=== PATIENT | female | born 1945 | race Caucasian/White ===

== ENCOUNTER 2018-05-02 01:14 | Inpatient (IN) | payer MEDICAID ==
[~2018-05-02] VITALS: Ht 162.6 cm; Wt 66.3 kg
[2018-05-02] MEDS ORDERED: MORPHINE SULFATE 4 MG/ML CPJ (NOT FOR IM USE) IV STA (02:54)
[2018-05-02] MEDS ORDERED: ONDANSETRON HCL 4MG/2ML VIAL IV STA (02:54)
[2018-05-02 03:06] LABS: CHLORIDE 81 mEq/L (98-107)
[2018-05-02 03:07] LABS: BASOPHILS % 0.4 % (0.0-2.0); EOSINOPHILS % 0.7 % (0.0-5.0); HEMATOCRIT. 44.1 % (36.0-48.0); HEMOGLOBIN. 15.4 g/dL (12.0-16.0); LYMPHOCYTES % 27.8 % (20.0-50.0); MEAN CORPUSCULAR HEMOGLOBIN 31.1 pg (28.0-32.0); MEAN CORPUSCULAR VOLUME 88.9 fL (81.0-99.0); MEAN PLATELET VOLUME 7.7 fl (7.4-10.4); NEUTROPHILS % 64.1 % (40.0-76.0); PLATELET 355 x1000/uL (130-400); RED BLOOD CELL COUNT 4.97 mill/uL (4.2-5.4); RED CELL DISTRIBUTION WIDTH 13.9 % (11.6-14.6)
[2018-05-02] MEDS ORDERED: METOCLOPRAMIDE HCL 10MG/2ML VIAL IV ONE (03:45)
[2018-05-02] MEDS ORDERED: SODIUM CHLORIDE 0.9% 500 ML IV NR (04:00)
[2018-05-02 08:00] VITALS: BP 137/43
[2018-05-02 09:00] VITALS: BP 137/43
[2018-05-02] MEDS ORDERED: ASPI-1158 MT (09:25)
[2018-05-02] MEDS ORDERED: METO-539 MT (09:25)
[2018-05-02] MEDS ORDERED: HYDR12.529 PO (09:25)
[2018-05-02] MEDS ORDERED: GUAIFENESIN 200MG/10ML SUGAR FREE UDC PO PRN (10:15)
[2018-05-02] MEDS ORDERED: ONDANSETRON HCL 4MG/2ML VIAL IV PRN (10:15)
[2018-05-02] MEDS ORDERED: HYDROCODONE/ACETAMINOPHEN 5/325MG TABLET PO PRN (10:15)
[2018-05-02] MEDS ORDERED: DIPHENHYDRAMINE 50MG/ML VIAL IV PRN (10:15)
[2018-05-02] MEDS ORDERED: IPRATROPIUM/ALBUTEROL 0.5-3(2.5)MG/3ML NEB INH PRN (10:15)
[2018-05-02] MEDS ORDERED: DOCUSATE SODIUM 100MG CAPSULE PO PRN (10:15)
[2018-05-02] MEDS ORDERED: HYDR-4135 MT (10:54)
[2018-05-02] MEDS ORDERED: SIMV20TA6 PO (10:57)
[2018-05-02 12:00] VITALS: BP 139/55
[2018-05-02 12:46] LABS: CHLORIDE 84 mEq/L (98-107)
[2018-05-02] MEDS ORDERED: DEXTROSE 50% WATER 50ML SYRINGE IV PRN (13:15)
[2018-05-02] MEDS: SODIUM CHLORIDE 0.9% 1,000 ML IV SCH (13:49)
[2018-05-02] MEDS: MAGNESIUM/ALUMINUM HYDROXIDE/SIMETHICONE 30ML UDC PO PRN (13:50)
[2018-05-02 16:00] VITALS: BP_SYST 110; BP_SYST 127; BP_DIAS 57; BP_DIAS 59
[2018-05-02 16:17] LABS: CLARITY URINE CLEAR (CLEAR); COLOR URINE YELLOW (YELLOW); KETONES URINE 1+ (NEGATIVE); LEUKOCYTE ESTERASE URINE 2+ (NEGATIVE); NITRITE URINE NEGATIVE (NEGATIVE); OCCULT BLOOD URINE NEGATIVE (NEGATIVE); PROTEIN URINE TRACE (NEGATIVE); SPECIFIC GRAVITY URINE 1.009 (1.005-1.030); UROBILINOGEN URINE 0.2 E.U./dL (0.2-1.0)
[2018-05-02] MEDS: BLOOD SUGAR DIAGNOSTIC STRIP TEST SCH ×2 (16:45→20:30)
[2018-05-02 16:51] LABS: *AMPHETAMINES SCREEN URINE NEGATIVE (NEGATIVE)
[2018-05-02 16:52] LABS: *BARBITURATES SCREEN URINE NEGATIVE (NEGATIVE); *BENZODIAZEPINES SCREEN URINE NEGATIVE (NEGATIVE); *COCAINE SCREEN URINE NEGATIVE (NEGATIVE); CANNABINOID URINE SCREEN NEGATIVE (NEGATIVE); METHADONE URINE SCREEN NEGATIVE (NEGATIVE); OPIATES URINE SCREEN PRESUMTIVE POSITIVE (NEGATIVE); PHENCYCLIDINE URINE SCREEN NEGATIVE (NEGATIVE)
[2018-05-02] MEDS: INSULIN LISPRO 100 UNITS/ML SUBCUT SCH ×2 (17:15→20:30)
[2018-05-02 20:00] VITALS: BP 157/57
[2018-05-02] MEDS: METOPROLOL TARTRATE 25MG TABLET PO SCH (20:30)
[2018-05-03] VITALS (7 sets, daily range): BP systolic 144–176; BP diastolic 60–80
[2018-05-03] MEDS: SODIUM CHLORIDE 0.9% 1,000 ML IV SCH ×2 (02:12→21:25)
[2018-05-03] MEDS: INSULIN LISPRO 100 UNITS/ML SUBCUT SCH ×4 (06:46→21:00)
[2018-05-03] MEDS: BLOOD SUGAR DIAGNOSTIC STRIP TEST SCH ×4 (06:46→21:32)
[2018-05-03] MEDS: OMEPRAZOLE 20MG CAPSULE EXTENDED RELEASE PO SCH (06:46)
[2018-05-03 07:48] LABS: BASOPHILS % 0.3 % (0.0-2.0); EOSINOPHILS % 0.3 % (0.0-5.0); HEMATOCRIT. 37.8 % (36.0-48.0); HEMOGLOBIN. 13.3 g/dL (12.0-16.0); LYMPHOCYTES % 23.5 % (20.0-50.0); MEAN CORPUSCULAR HEMOGLOBIN 31.1 pg (28.0-32.0); MEAN CORPUSCULAR VOLUME 88.5 fL (81.0-99.0); MEAN PLATELET VOLUME 7.1 fl (7.4-10.4); MONOCYTES % 8.1 % (2.0-8.0); NEUTROPHILS % 67.8 % (40.0-76.0); PLATELET 295 x1000/uL (130-400); RED BLOOD CELL COUNT 4.27 mill/uL (4.2-5.4); RED CELL DISTRIBUTION WIDTH 14.1 % (11.6-14.6)
[2018-05-03 07:55] LABS: CHLORIDE 93 mEq/L (98-107)
[2018-05-03 08:06] LABS: LDL CHOLESTEROL 54 mg/dL (5-100)
[2018-05-03 08:07] LABS: HDL CHOLESTEROL 92 mg/dL (40-59); T4 FREE 1.47 ng/dL (0.76-1.46)
[2018-05-03] MEDS: METOPROLOL TARTRATE 25MG TABLET PO SCH ×2 (08:48→21:24)
[2018-05-03] MEDS: ASPIRIN 81MG TABLET PO SCH (08:48)
[2018-05-03] MEDS ORDERED: LORAZEPAM 2MG/ML CPJ IV PRN (11:15)
[2018-05-03] MEDS ORDERED: POTASSIUM CHLORIDE 20MEQ TABLET SR PO NR ×2 (11:15→14:00)
[2018-05-03] MEDS: CLONIDINE 0.1MG TABLET PO PRN (12:19)
[2018-05-03] MEDS: AMLODIPINE 2.5MG TABLET PO SCH (21:25)
[2018-05-04] VITALS: BP 175/84
[2018-05-04 00:15] VITALS: BP 170/92
[2018-05-04] MEDS: CLONIDINE 0.1MG TABLET PO PRN ×3 (00:47→18:52)
[2018-05-04 04:00] VITALS: BP_SYST 124; BP_SYST 141; BP_SYST 144; BP_DIAS 61; BP_DIAS 71; BP_DIAS 73
[2018-05-04] MEDS: OMEPRAZOLE 20MG CAPSULE EXTENDED RELEASE PO SCH (06:09)
[2018-05-04] MEDS: BLOOD SUGAR DIAGNOSTIC STRIP TEST SCH ×4 (06:11→20:13)
[2018-05-04] MEDS: INSULIN LISPRO 100 UNITS/ML SUBCUT SCH ×4 (06:22→20:14)
[2018-05-04 07:20] LABS: CHLORIDE 93 mEq/L (98-107)
[2018-05-04 07:28] LABS: PHOSPHORUS 2.3 mg/dL (2.5-4.9)
[2018-05-04 07:34] LABS: BASOPHILS % 0.5 % (0.0-2.0); EOSINOPHILS % 1.2 % (0.0-5.0); HEMATOCRIT. 37.1 % (36.0-48.0); HEMOGLOBIN. 12.9 g/dL (12.0-16.0); LYMPHOCYTES % 23.4 % (20.0-50.0); MEAN CORPUSCULAR HEMOGLOBIN 31.3 pg (28.0-32.0); MEAN CORPUSCULAR VOLUME 89.7 fL (81.0-99.0); MEAN PLATELET VOLUME 7.4 fl (7.4-10.4); MONOCYTES % 9.3 % (2.0-8.0); NEUTROPHILS % 65.6 % (40.0-76.0); PLATELET 284 x1000/uL (130-400); RED BLOOD CELL COUNT 4.13 mill/uL (4.2-5.4); RED CELL DISTRIBUTION WIDTH 13.7 % (11.6-14.6)
[2018-05-04 08:00] VITALS: BP 162/78
[2018-05-04] MEDS: ASPIRIN 81MG TABLET PO SCH (09:52)
[2018-05-04] MEDS: AMLODIPINE 2.5MG TABLET PO SCH (09:52)
[2018-05-04] MEDS: METOPROLOL TARTRATE 25MG TABLET PO SCH (09:53)
[2018-05-04] MEDS: POTASSIUM CHLORIDE 20MEQ TABLET SR PO SCH (09:53)
[2018-05-04 13:29] LABS: SODIUM URINE RANDOM 129 mEq/L
[2018-05-04 16:00] VITALS: BP 176/80
[2018-05-04] MEDS: NIFEDIPINE XL 30MG TAB PO SCH ×2 (16:15→20:10)
[2018-05-04] MEDS: ACETAMINOPHEN 325MG TABLET PO PRN (16:20)
[2018-05-04 20:00] VITALS: BP_SYST 155; BP_SYST 174; BP_DIAS 78; BP_DIAS 87
[2018-05-04] MEDS: METOPROLOL TARTRATE 50MG TABLET PO SCH (20:11)
[2018-05-05] VITALS: BP 131/66
[2018-05-05] MEDS: SODIUM CHLORIDE 0.9% 1,000 ML IV SCH (00:44)
[2018-05-05 04:00] VITALS: BP 121/62
[2018-05-05] MEDS: BLOOD SUGAR DIAGNOSTIC STRIP TEST SCH ×4 (05:43→21:05)
[2018-05-05] MEDS: INSULIN LISPRO 100 UNITS/ML SUBCUT SCH ×4 (06:22→21:00)
[2018-05-05 07:25] LABS: BASOPHILS % 0.5 % (0.0-2.0); EOSINOPHILS % 1.4 % (0.0-5.0); HEMATOCRIT. 39.5 % (36.0-48.0); HEMOGLOBIN. 13.5 g/dL (12.0-16.0); LYMPHOCYTES % 24.5 % (20.0-50.0); MEAN CORPUSCULAR HEMOGLOBIN 30.3 pg (28.0-32.0); MEAN CORPUSCULAR VOLUME 88.7 fL (81.0-99.0); MEAN PLATELET VOLUME 7.3 fl (7.4-10.4); MONOCYTES % 8.2 % (2.0-8.0); NEUTROPHILS % 65.4 % (40.0-76.0); PLATELET 285 x1000/uL (130-400); RED BLOOD CELL COUNT 4.46 mill/uL (4.2-5.4); RED CELL DISTRIBUTION WIDTH 13.6 % (11.6-14.6)
[2018-05-05 08:00] VITALS: BP_SYST 117; BP_SYST 123; BP_SYST 148; BP_DIAS 65; BP_DIAS 73; BP_DIAS 79
[2018-05-05] MEDS: ACETAMINOPHEN 325MG TABLET PO PRN ×2 (08:16→22:37)
[2018-05-05] MEDS: POTASSIUM CHLORIDE 20MEQ TABLET SR PO SCH (08:17)
[2018-05-05] MEDS: ASPIRIN 81MG TABLET PO SCH (08:17)
[2018-05-05] MEDS: NIFEDIPINE XL 30MG TAB PO SCH ×2 (08:18→20:59)
[2018-05-05] MEDS: FAMOTIDINE 20MG TABLET PO SCH (08:18)
[2018-05-05] MEDS: METOPROLOL TARTRATE 50MG TABLET PO SCH ×2 (08:18→20:59)
[2018-05-05 09:05] LABS: CHLORIDE 87 mEq/L (98-107)
[2018-05-05 09:18] LABS: PHOSPHORUS 2.7 mg/dL (2.5-4.9)
[2018-05-05] MEDS: OMEPRAZOLE 20MG CAPSULE EXTENDED RELEASE PO SCH (14:40)
[2018-05-05] MEDS: DOCUSATE SODIUM 100MG CAPSULE PO SCH (14:40)
[2018-05-05 16:00] VITALS: BP 142/65
[2018-05-05] MEDS: TRAMADOL 50MG TABLET PO PRN (17:55)
[2018-05-05 18:02] LABS: CHLORIDE 91 mEq/L (98-107)
[2018-05-05 20:00] VITALS: BP 143/65
[2018-05-06] VITALS: BP 118/50
[2018-05-06 04:00] VITALS: BP 128/61
[2018-05-06] MEDS: OMEPRAZOLE 20MG CAPSULE EXTENDED RELEASE PO SCH (06:32)
[2018-05-06] MEDS: INSULIN LISPRO 100 UNITS/ML SUBCUT SCH ×4 (06:35→21:00)
[2018-05-06] MEDS: BLOOD SUGAR DIAGNOSTIC STRIP TEST SCH ×4 (06:35→21:00)
[2018-05-06 06:41] LABS: BASOPHILS % 0.5 % (0.0-2.0); EOSINOPHILS % 1.3 % (0.0-5.0); HEMATOCRIT. 40.8 % (36.0-48.0); HEMOGLOBIN. 14.2 g/dL (12.0-16.0); LYMPHOCYTES % 32.6 % (20.0-50.0); MEAN CORPUSCULAR HEMOGLOBIN 31.2 pg (28.0-32.0); MEAN CORPUSCULAR VOLUME 89.3 fL (81.0-99.0); MEAN PLATELET VOLUME 7.3 fl (7.4-10.4); MONOCYTES % 9.9 % (2.0-8.0); NEUTROPHILS % 55.7 % (40.0-76.0); PLATELET 357 x1000/uL (130-400); RED BLOOD CELL COUNT 4.56 mill/uL (4.2-5.4); RED CELL DISTRIBUTION WIDTH 13.9 % (11.6-14.6)
[2018-05-06 08:00] VITALS: BP 129/66
[2018-05-06 08:17] LABS: CHLORIDE 90 mEq/L (98-107)
[2018-05-06 08:22] LABS: PHOSPHORUS 3.1 mg/dL (2.5-4.9)
[2018-05-06] MEDS ORDERED: BISACODYL 10MG SUPP PR PRN (08:45)
[2018-05-06] MEDS ORDERED: SENNOSIDES/DOCUSATE SOD 8.6/50MG TABLET PO PRN (08:45)
[2018-05-06] MEDS: FAMOTIDINE 20MG TABLET PO SCH (10:24)
[2018-05-06] MEDS: DOCUSATE SODIUM 100MG CAPSULE PO SCH (10:24)
[2018-05-06] MEDS: SODIUM CHLORIDE 1000MG TABLET PO SCH ×2 (10:24→17:30)
[2018-05-06] MEDS: ASPIRIN 81MG TABLET PO SCH (10:24)
[2018-05-06] MEDS: POTASSIUM CHLORIDE 20MEQ TABLET SR PO SCH (10:24)
[2018-05-06] MEDS: NIFEDIPINE XL 30MG TAB PO SCH ×2 (10:25→21:00)
[2018-05-06] MEDS: METOPROLOL TARTRATE 50MG TABLET PO SCH ×2 (10:25→20:59)
[2018-05-06 12:00] VITALS: BP 142/74
[2018-05-06] MEDS ORDERED: NA PHOS,M-B/NA PHOS,DI-BA ENEMA 118ML PR PRN (14:30)
[2018-05-06 16:00] VITALS: BP 113/56
[2018-05-06] MEDS: MAGNESIUM/ALUMINUM HYDROXIDE/SIMETHICONE 30ML UDC PO PRN (17:30)
[2018-05-06] MEDS: TRAMADOL 50MG TABLET PO PRN (17:33)
[2018-05-06 20:00] VITALS: BP_SYST 118; BP_SYST 123; BP_SYST 83; BP_DIAS 51; BP_DIAS 71; BP_DIAS 72
[2018-05-07] VITALS: BP 119/59
[2018-05-07 04:00] VITALS: BP 120/58
[2018-05-07] MEDS: INSULIN LISPRO 100 UNITS/ML SUBCUT SCH ×4 (06:07→21:00)
[2018-05-07] MEDS: BLOOD SUGAR DIAGNOSTIC STRIP TEST SCH ×4 (06:07→21:45)
[2018-05-07 08:00] VITALS: BP_SYST 126; BP_SYST 137; BP_SYST 141; BP_DIAS 63; BP_DIAS 66; BP_DIAS 67
[2018-05-07] MEDS: FAMOTIDINE 20MG TABLET PO SCH (08:56)
[2018-05-07] MEDS: SODIUM CHLORIDE 1000MG TABLET PO SCH ×2 (08:56→17:21)
[2018-05-07] MEDS: NIFEDIPINE XL 30MG TAB PO SCH ×2 (08:56→21:45)
[2018-05-07] MEDS: METOPROLOL TARTRATE 50MG TABLET PO SCH ×2 (08:57→21:45)
[2018-05-07] MEDS: DOCUSATE SODIUM 100MG CAPSULE PO SCH (08:57)
[2018-05-07] MEDS: ASPIRIN 81MG TABLET PO SCH (08:57)
[2018-05-07] MEDS: ACETAMINOPHEN 325MG TABLET PO PRN ×2 (09:07→15:01)
[2018-05-07 09:22] LABS: BASOPHILS % 0.4 % (0.0-2.0); EOSINOPHILS % 0.2 % (0.0-5.0); HEMATOCRIT. 40.1 % (36.0-48.0); HEMOGLOBIN. 13.8 g/dL (12.0-16.0); MEAN CORPUSCULAR HEMOGLOBIN 31.5 pg (28.0-32.0); MEAN CORPUSCULAR VOLUME 91.3 fL (81.0-99.0); MEAN PLATELET VOLUME 7.3 fl (7.4-10.4); MONOCYTES % 5.4 % (2.0-8.0); PLATELET 340 x1000/uL (130-400); RED BLOOD CELL COUNT 4.39 mill/uL (4.2-5.4); RED CELL DISTRIBUTION WIDTH 14.1 % (11.6-14.6)
[2018-05-07 11:24] LABS: CHLORIDE 90 mEq/L (98-107)
[2018-05-07 12:00] VITALS: BP 145/61
[2018-05-07] MEDS ORDERED: SODIUM CHLORIDE 1000MG TABLET PO NR (12:00)
[2018-05-07 13:03] LABS: SODIUM URINE RANDOM 28 mEq/L
[2018-05-07 16:00] VITALS: BP 157/64
[2018-05-07 20:00] VITALS: BP_SYST 156; BP_SYST 159; BP_SYST 164; BP_DIAS 66; BP_DIAS 67; BP_DIAS 76
[2018-05-07] MEDS: DEMECLOCYCLINE HCL 300MG TABLET PO SCH (21:44)
[2018-05-08] VITALS: BP 149/73
[2018-05-08 04:00] VITALS: BP 136/67
[2018-05-08 04:16] LABS: CLARITY URINE CLEAR (CLEAR); COLOR URINE YELLOW (YELLOW); KETONES URINE TRACE (NEGATIVE); LEUKOCYTE ESTERASE URINE TRACE (NEGATIVE); NITRITE URINE NEGATIVE (NEGATIVE); OCCULT BLOOD URINE NEGATIVE (NEGATIVE); PH URINE 7.5 (4.5-8.0); PROTEIN URINE NEGATIVE (NEGATIVE); SPECIFIC GRAVITY URINE 1.011 (1.005-1.030)
[2018-05-08] MEDS: BLOOD SUGAR DIAGNOSTIC STRIP TEST SCH ×4 (06:57→21:05)
[2018-05-08] MEDS: INSULIN LISPRO 100 UNITS/ML SUBCUT SCH ×4 (06:57→21:00)
[2018-05-08 08:00] VITALS: BP 126/61
[2018-05-08] MEDS: DEMECLOCYCLINE HCL 300MG TABLET PO SCH ×2 (08:49→20:59)
[2018-05-08] MEDS: DOCUSATE SODIUM 100MG CAPSULE PO SCH (08:50)
[2018-05-08] MEDS: FAMOTIDINE 20MG TABLET PO SCH (08:50)
[2018-05-08] MEDS: METOPROLOL TARTRATE 50MG TABLET PO SCH ×2 (08:50→20:59)
[2018-05-08] MEDS: NIFEDIPINE XL 30MG TAB PO SCH ×2 (08:51→21:00)
[2018-05-08] MEDS: ASPIRIN 81MG TABLET PO SCH (08:51)
[2018-05-08] MEDS: SODIUM CHLORIDE 1000MG TABLET PO SCH ×2 (08:51→17:59)
[2018-05-08 09:08] LABS: BASOPHILS % 0.4 % (0.0-2.0); EOSINOPHILS % 0.7 % (0.0-5.0); HEMATOCRIT. 40.4 % (36.0-48.0); HEMOGLOBIN. 13.8 g/dL (12.0-16.0); LYMPHOCYTES % 28.3 % (20.0-50.0); MEAN CORPUSCULAR VOLUME 91.2 fL (81.0-99.0); MEAN PLATELET VOLUME 7.3 fl (7.4-10.4); MONOCYTES % 7.9 % (2.0-8.0); NEUTROPHILS % 62.7 % (40.0-76.0); PLATELET 371 x1000/uL (130-400); RED BLOOD CELL COUNT 4.44 mill/uL (4.2-5.4); RED CELL DISTRIBUTION WIDTH 14.3 % (11.6-14.6)
[2018-05-08 10:01] LABS: CHLORIDE 90 mEq/L (98-107); PHOSPHORUS 2.4 mg/dL (2.5-4.9)
[2018-05-08] MEDS ORDERED: POTASSIUM CHLORIDE 20MEQ TABLET SR PO SCH (11:00)
[2018-05-08] MEDS ORDERED: POTASSIUM CHLORIDE 20MEQ TABLET SR PO NR (11:00)
[2018-05-08 12:02] VITALS: BP 129/51
[2018-05-08 16:00] VITALS: BP 134/67
[2018-05-08] MEDS ORDERED: SODIUM PHOS,M-BASIC-D-BASIC 20 MM in SODIUM CHLORIDE 0.9% 250 ML IV NR (16:30)
[2018-05-08] MEDS: MAGNESIUM/ALUMINUM HYDROXIDE/SIMETHICONE 30ML UDC PO PRN (16:43)
[2018-05-08 20:00] VITALS: BP_SYST 135; BP_SYST 145; BP_SYST 147; BP_DIAS 63; BP_DIAS 69
[2018-05-09] VITALS (7 sets, daily range): BP systolic 112–131; BP diastolic 51–65
[2018-05-09] MEDS: BLOOD SUGAR DIAGNOSTIC STRIP TEST SCH ×2 (06:35→12:24)
[2018-05-09] MEDS: INSULIN LISPRO 100 UNITS/ML SUBCUT SCH ×2 (06:35→12:15)
[2018-05-09] MEDS ORDERED: POTASSIUM CHLORIDE 20MEQ TABLET SR PO SCH (09:00)
[2018-05-09] MEDS: SODIUM CHLORIDE 1000MG TABLET PO SCH (09:31)
[2018-05-09] MEDS: DEMECLOCYCLINE HCL 300MG TABLET PO SCH (09:32)
[2018-05-09] MEDS: METOPROLOL TARTRATE 50MG TABLET PO SCH (09:32)
[2018-05-09] MEDS: FAMOTIDINE 20MG TABLET PO SCH (09:32)
[2018-05-09] MEDS: NIFEDIPINE XL 30MG TAB PO SCH (09:32)
[2018-05-09] MEDS: DOCUSATE SODIUM 100MG CAPSULE PO SCH (09:33)
[2018-05-09] MEDS: ASPIRIN 81MG TABLET PO SCH (09:34)
[2018-05-09] MEDS: TRAMADOL 50MG TABLET PO PRN (11:29)
[2018-05-09 12:09] LABS: BASOPHILS % 0.7 % (0.0-2.0); EOSINOPHILS % 0.5 % (0.0-5.0); HEMATOCRIT. 37.9 % (36.0-48.0); HEMOGLOBIN. 12.9 g/dL (12.0-16.0); LYMPHOCYTES % 21.1 % (20.0-50.0); MEAN CORPUSCULAR VOLUME 90.8 fL (81.0-99.0); MEAN PLATELET VOLUME 6.9 fl (7.4-10.4); MONOCYTES % 8.4 % (2.0-8.0); NEUTROPHILS % 69.3 % (40.0-76.0); PLATELET 373 x1000/uL (130-400); RED BLOOD CELL COUNT 4.18 mill/uL (4.2-5.4); RED CELL DISTRIBUTION WIDTH 14.2 % (11.6-14.6)
[2018-05-09 12:11] LABS: CHLORIDE 96 mEq/L (98-107)
[2018-05-09 12:18] LABS: PHOSPHORUS 3.2 mg/dL (2.5-4.9)
[2018-05-09 16:50] LABS: CLARITY URINE CLEAR (CLEAR); COLOR URINE YELLOW (YELLOW); KETONES URINE NEGATIVE (NEGATIVE); LEUKOCYTE ESTERASE URINE TRACE (NEGATIVE); NITRITE URINE NEGATIVE (NEGATIVE); OCCULT BLOOD URINE TRACE (NEGATIVE); PROTEIN URINE NEGATIVE (NEGATIVE); SPECIFIC GRAVITY URINE 1.017 (1.005-1.030)
== END 2018-05-09 16:38 | disposition home or self-care (01) | DRG 48 ==
LOC: ER 01:14 → ENRESERV 07:38 → 5WST 08:47
PROVIDERS: ADMIT Internal Medicine; ATTEND Internal Medicine
DX: G90.8 Other disorders of autonomic nervous system (principal); E11.65 Type 2 diabetes mellitus with hyperglycemia; I27.22 Pulmonary hypertension due to left heart disease; E87.1 Hypo-osmolality and hyponatremia; E83.39 Other disorders of phosphorus metabolism; I95.1 Orthostatic hypotension; I50.9 Heart failure, unspecified; I11.0 Hypertensive heart disease with heart failure; E78.5 Hyperlipidemia, unspecified; K21.9 Gastro-esophageal reflux disease without esophagitis; E78.00 Pure hypercholesterolemia, unspecified; R26.9 Unspecified abnormalities of gait and mobility; E87.6 Hypokalemia; K59.00 Constipation, unspecified; T50.2X5A Adverse effect of carbonic-anhydrase inhibitors, benzothiadiazides and other diuretics, initial encounter; Z79.82 Long term (current) use of aspirin; Z79.899 Other long term (current) drug therapy; Y92.098 Other place in other non-institutional residence as the place of occurrence of the external cause; Z82.49 Family history of ischemic heart disease and other diseases of the circulatory system; Z83.49 Family history of other endocrine, nutritional and metabolic diseases
CPT/HCPCS: 36415; 70450; 70544; 70553; 71045; 74018; 80048; 80053; 80061; 80305; 81003; 82533; 82570; 82962; 83036; 83690; 83735; 83880; 83935; 84100; 84300; 84439; 84443; 84484; 85025; 85610; 87086; 93005; 93306; 93880; 96361; 96374; 96375; 97116; 97162; 97166; 99285; C1893; J2060; J2270; J2405; J2765; J3490; J7030; J7040; J7050; J7620